=== PATIENT | female | born 1970 | race Native Hawaiian/Other Pacific Islander ===

== ENCOUNTER 2023-11-05 18:10 | Emergency (ER) | payer OTHER ==
[~2023-11-05] VITALS: Ht 162.6 cm; Wt 77.1 kg
[2023-11-05 18:15] VITALS: TEMP 98.6
[2023-11-05 18:54] LABS: PLATELET COUNT 285 K/uL (152-353)
[2023-11-05 19:03] LABS: POTASSIUM 3.4 mmol/L (3.6-5.2); SODIUM 141 mmol/L (136-145)
[2023-11-05 19:08] LABS: PARTIAL THROMBOPLASTIN TIME 26.8 SECONDS (23.9-36.7)
[2023-11-05 21:36] VITALS: BP 130/88
== END 2023-11-05 22:52 | disposition home or self-care (01) ==
LOC: ED 18:10
PROVIDERS: Internal Medicine Endocrinology, Diabetes & Metabolism
DX: R06.02 Shortness of breath (principal); R05.9 Cough, unspecified; N39.0 Urinary tract infection, site not specified; J45.901 Unspecified asthma with (acute) exacerbation; B97.4 Respiratory syncytial virus as the cause of diseases classified elsewhere
CPT/HCPCS: 80053; 81000; 82550; 84484; 85027; 85610; 85730; 87077; 87086; 87088; 87185; 93005; 94664; 96365; 96372; 96375; 96376; 99284; J0696; J2060; J2405; J2930; J3475; J3490